=== PATIENT | female | born 1955 | race Two or more races ===

== ENCOUNTER → 2017-03-07 | Outpatient (CLI) | payer BC ==
[2017-03-07 07:39] LABS: Basophils # (auto) 0 uL; Basophils % (auto) 0.2 % (0.0-2.0); CONDITION Y; Eosinophils # (auto) 0.2 uL; Eosinophils % (auto) 1.6 % (0.0-7.0); Hematocrit 43.8 % (36.0-46.0); Hemoglobin 14.9 g/dL (12.2-16.2); Lymphocytes # (auto) 2.9 uL; Lymphocytes % (auto) 28.7 % (10.0-50.0); Mean Corpuscular Hemoglobin 29.1 pg (28.0-32.0); Mean Corpuscular Volume 85.7 fL (80.0-100.0); Mean Platelet Volume 7.3 fL (7.4-10.4); Monocytes # (auto) 0.5 uL; Monocytes % (auto) 4.8 % (0.0-12.0); Neutrophils # (auto) 6.6 uL; Neutrophils % (auto) 64.7 % (37.0-80.0); Platelet Count (auto) 324 10^3/uL (140-450); Red Cell Distribution Width 13.6 % (11.6-16.0); White Blood Cell 10.2 10^3/uL (4.4-10.8)
[2017-03-07 08:17] LABS: Albumin 3.8 g/dL (3.4-5.0); Bilirubin, Total 0.6 mg/dL (0.2-1.0); Calcium 9.6 mg/dL (8.5-10.1); Potassium 4.2 mmol/L (3.5-5.1); Total Protein 8.9 g/dL (6.4-8.2)
[2017-03-07 08:48] LABS: Urine Bilirubin Negative (Negative); Urine Blood Negative /uL (Negative); Urine Color Yellow (Yellow); Urine Glucose TRACE mg/dL (Normal); Urine Ketone Negative (Negative); Urine Nitrite Negative (Negative); Urine RBC <1 /hpf (0 - 4); Urine Squamous Epithelial Cell FEW /hpf (<5); Urine Urobilinogen Normal (Negative); Urine pH 5.5 (5.0-8.0)
== END | disposition home or self-care (01) ==
LOC: LAB 06:59
PROVIDERS: ATTEND Internal Medicine
DX: I10 Essential (primary) hypertension (principal); E11.9 Type 2 diabetes mellitus without complications
CPT/HCPCS: 36415; 80053; 80061; 81001; 83036; 84443; 85025

== ENCOUNTER → 2017-11-14 | Outpatient (CLI) | payer BC ==
[2017-11-14 08:08] LABS: Albumin 3.5 g/dL (3.4-5.0); BUN/Creatinine Ratio 13.9; Calcium 9.5 mg/dL (8.5-10.1); Potassium 4.1 mmol/L (3.5-5.1)
[2017-11-14 08:11] LABS: Bilirubin, Total 0.6 mg/dL (0.2-1.0)
[2017-11-14 08:58] LABS: Free T3 2.81 pg/mL (2.3-4.2)
== END | disposition home or self-care (01) ==
LOC: LAB 07:11
PROVIDERS: ATTEND Physician Assistant
DX: I12.9 Hypertensive chronic kidney disease with stage 1 through stage 4 chronic kidney disease, or unspecified chronic kidney disease (principal); E11.22 Type 2 diabetes mellitus with diabetic chronic kidney disease; N18.3 Chronic kidney disease, stage 3 (moderate); E03.9 Hypothyroidism, unspecified
CPT/HCPCS: 36415; 80053; 83036; 84439; 84443; 84481

== ENCOUNTER 2019-10-28 07:30 | Inpatient (IN) | payer OTHER, BC, SELFPAY ==
[~2019-10-28] VITALS: Ht 162.6 cm; Wt 77.4 kg
[2019-10-28 08:13] LABS: Basophils # (auto) 0 10 ^3/uL (0-0.2); Basophils % (auto) 0.4 % (0.0-2.0); Eosinophils # (auto) 0 10 ^3/uL (0-0.8); Hematocrit 39.2 % (36.0-46.0); Hemoglobin 13.4 g/dL (12.2-16.2); Lymphocytes # (auto) 1.2 10 ^3/uL (0.4-5.4); Lymphocytes % (auto) 20.3 % (10.0-50.0); Mean Corpuscular Hemoglobin 28.3 pg (28.0-32.0); Mean Corpuscular Hgb Conc. 34.3 g/dL (32.0-36.0); Mean Corpuscular Volume 82.4 fL (80.0-100.0); Monocytes # (auto) 0.2 10 ^3/uL (0-1.3); Monocytes % (auto) 3.8 % (0.0-12.0); Neutrophils # (auto) 4.6 10 ^3/uL (1.6-8.6); Neutrophils % (auto) 75.5 % (37.0-80.0); Nucleated Red Blood Cells % 0.2 %; Platelet Count (auto) 244 10^3/uL (140-450); Red Blood Cells 4.75 10^6/uL (4.0-5.20); Red Cell Distribution Width 13.3 % (11.8-14.3); White Blood Cell 6.1 10^3/uL (4.4-10.8)
[2019-10-28 08:35] LABS: Albumin 3.1 g/dL (3.4-5.0); Anion Gap 7 (5-15); Blood Urea Nitrogen 11 mg/dL (7-18); Calcium 8.2 mg/dL (8.5-10.1); Carbon Dioxide 24 mmol/L (21-32); Chloride 101 mmol/L (98-107); Glucose 152 mg/dL (74-106); Magnesium 2.2 mg/dL (1.6-2.6); Potassium 4.1 mmol/L (3.5-5.1); Sodium 132 mmol/L (136-145)
[2019-10-28 08:40] LABS: Alanine Aminotransferase 31 U/L (13-56); Alkaline Phosphatase 62 U/L (45-117); Aspartate Aminotransferase 26 U/L (15-37); BUN/Creatinine Ratio 15.7; Bilirubin, Total 0.4 mg/dL (0.2-1.0); GFR African American 108 mL/min; GFR Non-African American 89 mL/min; Total Protein 8.7 g/dL (6.4-8.2)
[2019-10-28 09:28] LABS: Urine Bacteria NONE SEEN /hpf (None Seen); Urine Blood Negative /uL (Negative); Urine Hyaline Cast FEW /lpf (0 - 2); Urine Mucus FEW (None Seen); Urine Specific Gravity 1.021 (1.001-1.035); Urine WBC 45 /hpf (0 - 5)
[2019-10-28] MEDS ORDERED: cefTRIAXone 1GM/50ML D5W 50 ML IV ONE (10:15)
[2019-10-28] MEDS ORDERED: SPIRONOLACTONE 25 MG TAB PO ONE (10:45)
[2019-10-28] MEDS ORDERED: FUROSEMIDE 40 MG/4 ML VIAL IV ONE (10:45)
[2019-10-28] MEDS ORDERED: FUROSEMIDE INJECTION 10 ML ONE (12:19)
[2019-10-28] MEDS ORDERED: IOHEXOL 350 MG/ML 100ML IJ ONE (14:58)
[2019-10-28] MEDS ORDERED: AZITHROMYCIN 500MG/ 250ML 250 ML IV ONE (15:45)
[2019-10-28] MEDS ORDERED: NITROGLYCERIN 0.4 MG SL TAB SL PRN (17:00)
[2019-10-28] MEDS ORDERED: DEXTROSE (50%) 50ML SYRG IV PRN (17:00)
[2019-10-28] MEDS ORDERED: MORPHINE SULF INJ 2 MG/ML SYRINGE 1ML IV PRN (17:00)
[2019-10-28] MEDS ORDERED: CHOLECALCIFEROL (VITD3) 1,000IU=25mCg TAB PO SCH (17:15)
[2019-10-28 17:38] LABS: CRP High Sensitivity 3.72 mg/dL (< 0.3)
[2019-10-28] MEDS: InsuLIN REG 1unit/0.01ml Soln (100units/ml) SC SCH ×2 (17:52→21:48)
[2019-10-28] MEDS: ACCU-CHEK COMFORT CURVE STRIP VI SCH ×2 (17:54→21:49)
[2019-10-28 20:00] VITALS: BP 112/54
[2019-10-28] MEDS ORDERED: METF-370 PO (21:52)
[2019-10-28] MEDS ORDERED: ASCORBIC ACID 500 MG TAB PO SCH (22:00)
[2019-10-29] MEDS: ACCU-CHEK COMFORT CURVE STRIP VI SCH ×4 (07:00→23:55)
[2019-10-29] MEDS: InsuLIN REG 1unit/0.01ml Soln (100units/ml) SC SCH ×4 (07:00→22:00)
[2019-10-29 08:21] LABS: Basophils # (auto) 0 10 ^3/uL (0-0.2); Basophils % (auto) 0.2 % (0.0-2.0); Eosinophils # (auto) 0 10 ^3/uL (0-0.8); Hematocrit 38.3 % (36.0-46.0); Hemoglobin 12.8 g/dL (12.2-16.2); Lymphocytes # (auto) 1.1 10 ^3/uL (0.4-5.4); Lymphocytes % (auto) 15.3 % (10.0-50.0); Mean Corpuscular Hemoglobin 27.6 pg (28.0-32.0); Mean Corpuscular Hgb Conc. 33.5 g/dL (32.0-36.0); Mean Corpuscular Volume 82.1 fL (80.0-100.0); Monocytes # (auto) 0.3 10 ^3/uL (0-1.3); Monocytes % (auto) 4.5 % (0.0-12.0); Neutrophils # (auto) 5.7 10 ^3/uL (1.6-8.6); Nucleated Red Blood Cells % 0.1 %; Platelet Count (auto) 240 10^3/uL (140-450); Red Blood Cells 4.66 10^6/uL (4.0-5.20); Red Cell Distribution Width 13.3 % (11.8-14.3); White Blood Cell 7.1 10^3/uL (4.4-10.8)
[2019-10-29 08:40] LABS: Albumin 2.8 g/dL (3.4-5.0); Calcium 8.5 mg/dL (8.5-10.1); Potassium 3.7 mmol/L (3.5-5.1)
[2019-10-29 08:43] LABS: BUN/Creatinine Ratio 16.7; Bilirubin, Total 0.6 mg/dL (0.2-1.0); Total Protein 8.2 g/dL (6.4-8.2)
[2019-10-29 09:00] VITALS: BP 115/58
[2019-10-29] MEDS ORDERED: cefTRIAXone 1GM/50ML D5W 50 ML IV SCH (09:00)
[2019-10-29] MEDS ORDERED: AZITHROMYCIN 500MG/ 250ML 250 ML IV SCH (10:00)
[2019-10-29] MEDS ORDERED: ENOXAPARIN SOD 40 MG/0.4 ML SYRINGE SC SCH (10:00)
[2019-10-29] MEDS ORDERED: ZINC SULFATE 220mg CAP or TAB PO SCH (10:00)
[2019-10-29 13:00] VITALS: BP 130/71
[2019-10-29] MEDS: AZITHROMYCIN 500MG/ 250ML 250 ML IV SCH (13:35)
[2019-10-29] MEDS: ZINC SULFATE 220mg CAP or TAB PO SCH (13:35)
[2019-10-29] MEDS: ENOXAPARIN SOD 40 MG/0.4 ML SYRINGE SC SCH (13:36)
[2019-10-29] MEDS: CHOLECALCIFEROL (VITD3) 1,000IU=25mCg TAB PO SCH (13:36)
[2019-10-29] MEDS: ASCORBIC ACID 500 MG TAB PO SCH ×2 (13:36→23:56)
[2019-10-29 17:30] VITALS: BP 116/82
[2019-10-29] MEDS ORDERED: ACETAMINOPHEN 500 MG TAB PO PRN (19:00)
[2019-10-29 22:00] VITALS: BP 115/65
[2019-10-29] MEDS: ALBUTEROL SULF HFA 90MCG INH 200DOSE IN SCH (22:00)
[2019-10-30] MEDS: ACCU-CHEK COMFORT CURVE STRIP VI SCH ×4 (06:53→22:45)
[2019-10-30] MEDS: InsuLIN REG 1unit/0.01ml Soln (100units/ml) SC SCH ×4 (06:56→23:45)
[2019-10-30] MEDS: ALBUTEROL SULF HFA 90MCG INH 200DOSE IN SCH ×3 (07:23→23:45)
[2019-10-30 09:00] VITALS: BP 109/62
[2019-10-30] MEDS: cefTRIAXone 1GM/50ML D5W 50 ML IV SCH (09:18)
[2019-10-30 09:36] VITALS: BP 115/65
[2019-10-30] MEDS ORDERED: cefTRIAXone 1GM/50ML D5W 50 ML IV SCH (12:00)
[2019-10-30 13:00] VITALS: BP 127/71
[2019-10-30] MEDS: AZITHROMYCIN 500MG/ 250ML 250 ML IV SCH (13:44)
[2019-10-30] MEDS: ZINC SULFATE 220mg CAP or TAB PO SCH (13:44)
[2019-10-30] MEDS: ASCORBIC ACID 500 MG TAB PO SCH ×2 (13:44→23:45)
[2019-10-30] MEDS: CHOLECALCIFEROL (VITD3) 1,000IU=25mCg TAB PO SCH (13:45)
[2019-10-30] MEDS: ENOXAPARIN SOD 40 MG/0.4 ML SYRINGE SC SCH (13:45)
[2019-10-30 14:10] LABS: Basophils # (auto) 0 10 ^3/uL (0-0.2); Basophils % (auto) 0.1 % (0.0-2.0); Eosinophils # (auto) 0 10 ^3/uL (0-0.8); Eosinophils % (auto) 0.1 % (0.0-7.0); Hematocrit 37.4 % (36.0-46.0); Hemoglobin 12.8 g/dL (12.2-16.2); Lymphocytes # (auto) 1.2 10 ^3/uL (0.4-5.4); Lymphocytes % (auto) 17.5 % (10.0-50.0); Mean Corpuscular Hemoglobin 28.1 pg (28.0-32.0); Mean Corpuscular Hgb Conc. 34.3 g/dL (32.0-36.0); Mean Corpuscular Volume 81.8 fL (80.0-100.0); Monocytes # (auto) 0.3 10 ^3/uL (0-1.3); Monocytes % (auto) 4.9 % (0.0-12.0); Neutrophils # (auto) 5.5 10 ^3/uL (1.6-8.6); Neutrophils % (auto) 77.4 % (37.0-80.0); Platelet Count (auto) 270 10^3/uL (140-450); Red Blood Cells 4.57 10^6/uL (4.0-5.20); Red Cell Distribution Width 13.2 % (11.8-14.3)
[2019-10-30 14:30] LABS: Albumin 2.7 g/dL (3.4-5.0); BUN/Creatinine Ratio 11.6; Calcium 8.8 mg/dL (8.5-10.1)
[2019-10-30 14:33] LABS: Bilirubin, Total 0.4 mg/dL (0.2-1.0); Total Protein 8.5 g/dL (6.4-8.2)
[2019-10-30 17:30] VITALS: BP 119/73
[2019-10-30 21:30] VITALS: BP 104/59
[2019-10-31 05:00] VITALS: BP 115/64
[2019-10-31] MEDS: ALBUTEROL SULF HFA 90MCG INH 200DOSE IN SCH ×3 (07:05→22:56)
[2019-10-31] MEDS: ACCU-CHEK COMFORT CURVE STRIP VI SCH ×4 (07:10→22:56)
[2019-10-31] MEDS: InsuLIN REG 1unit/0.01ml Soln (100units/ml) SC SCH ×4 (07:10→23:30)
[2019-10-31 08:00] VITALS: BP 105/76
[2019-10-31 09:05] LABS: Basophils # (auto) 0 10 ^3/uL (0-0.2); Basophils % (auto) 0.2 % (0.0-2.0); Eosinophils # (auto) 0 10 ^3/uL (0-0.8); Eosinophils % (auto) 0.3 % (0.0-7.0); Hemoglobin 12.9 g/dL (12.2-16.2); Lymphocytes # (auto) 1.1 10 ^3/uL (0.4-5.4); Lymphocytes % (auto) 18.3 % (10.0-50.0); Mean Corpuscular Hemoglobin 27.9 pg (28.0-32.0); Mean Corpuscular Volume 82.1 fL (80.0-100.0); Monocytes # (auto) 0.4 10 ^3/uL (0-1.3); Monocytes % (auto) 6.5 % (0.0-12.0); Neutrophils # (auto) 4.5 10 ^3/uL (1.6-8.6); Neutrophils % (auto) 74.7 % (37.0-80.0); Nucleated Red Blood Cells % 0.1 %; Platelet Count (auto) 287 10^3/uL (140-450); Red Blood Cells 4.62 10^6/uL (4.0-5.20); Red Cell Distribution Width 13.1 % (11.8-14.3)
[2019-10-31 09:19] LABS: Albumin 2.7 g/dL (3.4-5.0); Potassium 3.9 mmol/L (3.5-5.1)
[2019-10-31 09:22] LABS: BUN/Creatinine Ratio 12.3; Bilirubin, Total 0.5 mg/dL (0.2-1.0); Total Protein 8.7 g/dL (6.4-8.2)
[2019-10-31] MEDS: cefTRIAXone 1GM/50ML D5W 50 ML IV SCH (10:05)
[2019-10-31 12:00] VITALS: BP 103/54
[2019-10-31] MEDS: ZINC SULFATE 220mg CAP or TAB PO SCH (12:44)
[2019-10-31] MEDS: CHOLECALCIFEROL (VITD3) 1,000IU=25mCg TAB PO SCH (12:45)
[2019-10-31] MEDS: ASCORBIC ACID 500 MG TAB PO SCH ×2 (12:45→22:56)
[2019-10-31] MEDS: AZITHROMYCIN 250 MG TAB PO SCH (12:46)
[2019-10-31] MEDS: ENOXAPARIN SOD 40 MG/0.4 ML SYRINGE SC SCH (12:47)
[2019-10-31 21:00] VITALS: BP 135/99
[2019-11-01 05:00] VITALS: BP 117/59
[2019-11-01] MEDS: ALBUTEROL SULF HFA 90MCG INH 200DOSE IN SCH ×3 (06:17→23:02)
[2019-11-01] MEDS: ACCU-CHEK COMFORT CURVE STRIP VI SCH ×4 (06:17→23:32)
[2019-11-01] MEDS: InsuLIN REG 1unit/0.01ml Soln (100units/ml) SC SCH ×4 (06:30→23:02)
[2019-11-01 08:10] VITALS: BP 147/86
[2019-11-01] MEDS: cefTRIAXone 1GM/50ML D5W 50 ML IV SCH (09:26)
[2019-11-01] MEDS: ASCORBIC ACID 500 MG TAB PO SCH ×2 (12:59→23:33)
[2019-11-01] MEDS: ZINC SULFATE 220mg CAP or TAB PO SCH (12:59)
[2019-11-01] MEDS: CHOLECALCIFEROL (VITD3) 1,000IU=25mCg TAB PO SCH (13:00)
[2019-11-01] MEDS: AZITHROMYCIN 250 MG TAB PO SCH (13:00)
[2019-11-01 13:01] LABS: Albumin 2.6 g/dL (3.4-5.0); Calcium 9.2 mg/dL (8.5-10.1); Magnesium 2.4 mg/dL (1.6-2.6)
[2019-11-01 13:04] LABS: BUN/Creatinine Ratio 11.8; Bilirubin, Total 0.3 mg/dL (0.2-1.0); Phosphorus 3.8 mg/dL (2.5-4.90); Total Protein 8.3 g/dL (6.4-8.2)
[2019-11-01 16:09] LABS: Basophils # (auto) 0 10 ^3/uL (0-0.2); Basophils % (auto) 0.5 % (0.0-2.0); Eosinophils # (auto) 0.1 10 ^3/uL (0-0.8); Eosinophils % (auto) 1.4 % (0.0-7.0); Hematocrit 36.1 % (36.0-46.0); Hemoglobin 12.1 g/dL (12.2-16.2); Lymphocytes # (auto) 1.4 10 ^3/uL (0.4-5.4); Lymphocytes % (auto) 23.3 % (10.0-50.0); Mean Corpuscular Hemoglobin 28.1 pg (28.0-32.0); Mean Corpuscular Hgb Conc. 33.5 g/dL (32.0-36.0); Mean Corpuscular Volume 83.8 fL (80.0-100.0); Monocytes # (auto) 0.4 10 ^3/uL (0-1.3); Monocytes % (auto) 7.3 % (0.0-12.0); Neutrophils % (auto) 67.5 % (37.0-80.0); Nucleated Red Blood Cells % 0.3 %; Platelet Count (auto) 240 10^3/uL (140-450); Red Blood Cells 4.31 10^6/uL (4.0-5.20); Red Cell Distribution Width 13.1 % (11.8-14.3); White Blood Cell 5.9 10^3/uL (4.4-10.8)
[2019-11-01] MEDS: ENOXAPARIN SOD 40 MG/0.4 ML SYRINGE SC SCH (16:14)
[2019-11-01 21:00] VITALS: BP 123/62
[2019-11-02] MEDS: ALBUTEROL SULF HFA 90MCG INH 200DOSE IN SCH ×3 (07:00→22:08)
[2019-11-02] MEDS: ACCU-CHEK COMFORT CURVE STRIP VI SCH ×3 (07:25→18:45)
[2019-11-02] MEDS: InsuLIN REG 1unit/0.01ml Soln (100units/ml) SC SCH ×3 (07:25→19:08)
[2019-11-02 07:51] LABS: Basophils # (auto) 0 10 ^3/uL (0-0.2); Basophils % (auto) 0.4 % (0.0-2.0); Eosinophils # (auto) 0.1 10 ^3/uL (0-0.8); Eosinophils % (auto) 1.9 % (0.0-7.0); Hematocrit 39.4 % (36.0-46.0); Hemoglobin 13.3 g/dL (12.2-16.2); Lymphocytes % (auto) 29.8 % (10.0-50.0); Mean Corpuscular Hemoglobin 27.7 pg (28.0-32.0); Mean Corpuscular Hgb Conc. 33.7 g/dL (32.0-36.0); Mean Corpuscular Volume 82.3 fL (80.0-100.0); Monocytes # (auto) 0.5 10 ^3/uL (0-1.3); Monocytes % (auto) 7.7 % (0.0-12.0); Neutrophils % (auto) 60.2 % (37.0-80.0); Platelet Count (auto) 397 10^3/uL (140-450); Red Blood Cells 4.79 10^6/uL (4.0-5.20); Red Cell Distribution Width 13.1 % (11.8-14.3); White Blood Cell 6.6 10^3/uL (4.4-10.8)
[2019-11-02 08:06] LABS: INR 1.02 (0.9-1.15); Partial Thromboplastin Time 24.3 sec (23.64-32.05)
[2019-11-02 08:17] LABS: Calcium 9.5 mg/dL (8.5-10.1); Magnesium 2.4 mg/dL (1.6-2.6); Potassium 3.9 mmol/L (3.5-5.1)
[2019-11-02 08:21] LABS: BUN/Creatinine Ratio 8.6; Bilirubin, Total 0.4 mg/dL (0.2-1.0); Phosphorus 3.9 mg/dL (2.5-4.90); Total Protein 9.4 g/dL (6.4-8.2)
[2019-11-02] MEDS: cefTRIAXone 1GM/50ML D5W 50 ML IV SCH (10:22)
[2019-11-02 11:58] VITALS: BP 123/62
[2019-11-02 12:00] VITALS: BP 123/64
[2019-11-02] MEDS: ASCORBIC ACID 500 MG TAB PO SCH (13:11)
[2019-11-02] MEDS: CHOLECALCIFEROL (VITD3) 1,000IU=25mCg TAB PO SCH (13:11)
[2019-11-02] MEDS: ZINC SULFATE 220mg CAP or TAB PO SCH (13:11)
[2019-11-02] MEDS: AZITHROMYCIN 250 MG TAB PO SCH (13:11)
[2019-11-02] MEDS: ENOXAPARIN SOD 40 MG/0.4 ML SYRINGE SC SCH (13:12)
[2019-11-02 16:00] VITALS: BP 121/65
[2019-11-02 22:00] VITALS: BP 115/60
[2019-11-03] MEDS: ACCU-CHEK COMFORT CURVE STRIP VI SCH ×5 (00:03→21:57)
[2019-11-03] MEDS: ASCORBIC ACID 500 MG TAB PO SCH ×3 (00:03→21:57)
[2019-11-03] MEDS: InsuLIN REG 1unit/0.01ml Soln (100units/ml) SC SCH ×5 (00:03→21:55)
[2019-11-03 05:00] VITALS: BP 124/61
[2019-11-03] MEDS: ALBUTEROL SULF HFA 90MCG INH 200DOSE IN SCH ×3 (06:24→21:55)
[2019-11-03] MEDS: cefTRIAXone 1GM/50ML D5W 50 ML IV SCH ×2 (08:05→08:30)
[2019-11-03 08:45] VITALS: BP 122/67
[2019-11-03] MEDS: ZINC SULFATE 220mg CAP or TAB PO SCH (11:29)
[2019-11-03] MEDS: ENOXAPARIN SOD 40 MG/0.4 ML SYRINGE SC SCH (11:30)
[2019-11-03] MEDS: CHOLECALCIFEROL (VITD3) 1,000IU=25mCg TAB PO SCH (11:30)
[2019-11-03] MEDS: AZITHROMYCIN 250 MG TAB PO SCH (11:30)
[2019-11-03 13:00] VITALS: BP 126/69
[2019-11-03 16:12] VITALS: BP 119/67
[2019-11-03 22:00] VITALS: BP 121/68
[2019-11-04 05:00] VITALS: BP 96/51
[2019-11-04] MEDS: ALBUTEROL SULF HFA 90MCG INH 200DOSE IN SCH ×2 (05:53→14:19)
[2019-11-04] MEDS: ACCU-CHEK COMFORT CURVE STRIP VI SCH ×3 (05:53→17:00)
[2019-11-04] MEDS: InsuLIN REG 1unit/0.01ml Soln (100units/ml) SC SCH ×3 (05:53→17:00)
[2019-11-04 08:00] VITALS: BP 102/62
[2019-11-04] MEDS: ZINC SULFATE 220mg CAP or TAB PO SCH (12:00)
[2019-11-04 13:00] VITALS: BP 109/54
[2019-11-04] MEDS: ASCORBIC ACID 500 MG TAB PO SCH (13:53)
[2019-11-04] MEDS: ENOXAPARIN SOD 40 MG/0.4 ML SYRINGE SC SCH (13:54)
[2019-11-04] MEDS: CHOLECALCIFEROL (VITD3) 1,000IU=25mCg TAB PO SCH (13:54)
[2019-11-04] MEDS: AZITHROMYCIN 250 MG TAB PO SCH (13:55)
[2019-11-04 16:17] VITALS: BP 119/61
[2019-11-04 16:26] VITALS: BP 119/61
[2019-11-04 18:00] VITALS: BP 119/61
== END 2019-11-04 18:30 | disposition home or self-care (01) | DRG 871 ==
LOC: ER 07:30 → TELE 07:31 → TELE-EAST 18:48
PROVIDERS: ADMIT Nurse Practitioner Acute Care; ATTEND Internal Medicine Nephrology
DX: A41.89 Other specified sepsis (principal); U07.1 COVID-19; J96.01 Acute respiratory failure with hypoxia; J12.89 Other viral pneumonia; N30.00 Acute cystitis without hematuria; E87.1 Hypo-osmolality and hyponatremia; R65.20 Severe sepsis without septic shock; E66.9 Obesity, unspecified; E88.09 Other disorders of plasma-protein metabolism, not elsewhere classified; K80.20 Calculus of gallbladder without cholecystitis without obstruction; E11.65 Type 2 diabetes mellitus with hyperglycemia; Z79.84 Long term (current) use of oral hypoglycemic drugs; Z83.3 Family history of diabetes mellitus; Z80.8 Family history of malignant neoplasm of other organs or systems; Z80.0 Family history of malignant neoplasm of digestive organs; Z68.29 Body mass index [BMI] 29.0-29.9, adult; B97.29 Other coronavirus as the cause of diseases classified elsewhere
CPT/HCPCS: 36415; 71045; 71275; 80053; 81001; 82728; 82962; 83036; 83615; 83735; 83880; 83930; 84100; 84484; 84550; 85025; 85379; 85610; 85652; 85730; 86141; 87040; 87070; 87804; 87880; 93005; 94640; 96365; 96367; 96375; G0378; J0696; J1815

== ENCOUNTER 2019-11-30 07:33 | Inpatient (IN) | payer OTHER, BC ==
[~2019-11-30] VITALS: Ht 160 cm; Wt 74.9 kg
[~2019-11-30 07:33] MED LIST: METF-370 PO
[2019-11-30] MEDS ORDERED: SODIUM CHLORIDE 0.9% 1,000 ML IV ONE (07:43)
[2019-11-30] MEDS ORDERED: ASPirin 81 mg TAB PO ONE (08:00)
[2019-11-30 08:31] LABS: Basophils # (auto) 0 10 ^3/uL (0-0.2); Basophils % (auto) 0.3 % (0.0-2.0); Eosinophils # (auto) 0.1 10 ^3/uL (0-0.8); Hematocrit 37.2 % (36.0-46.0); Hemoglobin 12.2 g/dL (12.2-16.2); Lymphocytes # (auto) 2.5 10 ^3/uL (0.4-5.4); Lymphocytes % (auto) 36.5 % (10.0-50.0); Mean Corpuscular Hemoglobin 27.6 pg (28.0-32.0); Mean Corpuscular Hgb Conc. 32.8 g/dL (32.0-36.0); Mean Corpuscular Volume 84.2 fL (80.0-100.0); Monocytes # (auto) 0.4 10 ^3/uL (0-1.3); Monocytes % (auto) 5.2 % (0.0-12.0); Neutrophils # (auto) 3.9 10 ^3/uL (1.6-8.6); Nucleated Red Blood Cells % 0.1 %; Platelet Count (auto) 250 10^3/uL (140-450); Red Blood Cells 4.42 10^6/uL (4.0-5.20); Red Cell Distribution Width 14.9 % (11.8-14.3); White Blood Cell 6.9 10^3/uL (4.4-10.8)
[2019-11-30 08:50] LABS: Alanine Aminotransferase 26 U/L (13-56); Albumin 3.4 g/dL (3.4-5.0); Anion Gap 6 (5-15); Aspartate Aminotransferase 16 U/L (15-37); Blood Urea Nitrogen 9 mg/dL (7-18); Calcium 8.8 mg/dL (8.5-10.1); Carbon Dioxide 27 mmol/L (21-32); Chloride 106 mmol/L (98-107); Glucose 178 mg/dL (74-106); Potassium 3.6 mmol/L (3.5-5.1); Sodium 139 mmol/L (136-145)
[2019-11-30 08:55] LABS: Alkaline Phosphatase 54 U/L (45-117); BUN/Creatinine Ratio 13.8; Bilirubin, Total 0.4 mg/dL (0.2-1.0); GFR African American 117 mL/min; GFR Non-African American 97 mL/min; Lactate Dehydrogenase 132 U/L (84-246); Total Protein 7.9 g/dL (6.4-8.2)
[2019-11-30] MEDS ORDERED: hydrALAZINE HCL 20 MG/ML VL IV PRN (10:00)
[2019-11-30] MEDS ORDERED: LISINOPRIL 10 MG TAB PO SCH (10:00)
[2019-11-30] MEDS ORDERED: ONDANSETRON HCL 4 MG/2 ML VIAL IV PRN (10:00)
[2019-11-30] MEDS ORDERED: MORPHINE SULF INJ 2 MG/ML SYRINGE 1ML IV PRN ×2 (10:00)
[2019-11-30] MEDS ORDERED: NITROGLYCERIN 0.4 MG SL TAB SL PRN (10:00)
[2019-11-30] MEDS ORDERED: DEXTROSE (50%) 50ML SYRG IV PRN (10:00)
[2019-11-30] MEDS ORDERED: HYDROcodone-ACET 5/325MG TAB PO PRN (10:00)
[2019-11-30] MEDS ORDERED: ACETAMINOPHEN 500 MG TAB PO PRN ×2 (10:00→13:30)
[2019-11-30] MEDS: METOPROLOL TARTRATE 25 MG TAB PO SCH ×2 (10:16→22:00)
[2019-11-30] MEDS: ENOXAPARIN SOD 40 MG/0.4 ML SYRINGE SC SCH (10:17)
[2019-11-30] MEDS: FAMOTIDINE 20 MG TAB PO SCH (10:17)
[2019-11-30 10:25] LABS: CRP High Sensitivity 0.06 mg/dL (< 0.3); Magnesium 2.2 mg/dL (1.6-2.6)
[2019-11-30] MEDS ORDERED: FUROSEMIDE 20 MG/2 ML VIAL IV ONE (10:30)
--- NOTE | 2019-11-30 11:06 | NUR ---
Telemetry admit from ER ORQUIDEA COOPER admitted to Telemetry unit after SBAR received. Patient oriented to Subha Lopez, primary RN, unit, room, bed, and unit policies regarding patient care and visiting hours. Patient now on continuous telemetry monitoring, tele box # 3 and telemetry reading on arrival to unit is . Patient placed on bedside oxygen, weighed by bedscale and encouraged to call if they need something. All questions and concerns addressed, patient verbalized understanding. Note:
[2019-11-30 11:38] VITALS: BP 129/73
--- NOTE | 2019-11-30 12:06 | NUR ---
ATTEMPTED LAB DRAW UNABLE TO GET AFTER 2 TRIES. NOTIFIED LAB
[2019-11-30 13:00] VITALS: BP 134/67
[2019-11-30] MEDS: ACCU-CHEK COMFORT CURVE STRIP VI SCH ×3 (13:04→22:18)
[2019-11-30] MEDS: InsuLIN REG 1unit/0.01ml Soln (100units/ml) SC SCH ×3 (13:05→22:19)
--- NOTE | 2019-11-30 13:54 | NUR ---
CAMPBELL CAMPUZANO AT BEDSIDE DISCUSSING POC WITH PATIENT WA ABLE TO DRAW LAB FOR TROPONIN.
[2019-11-30] MEDS: ALBUTEROL SULF HFA 90MCG INH 200DOSE IN SCH ×2 (14:20→22:17)
--- NOTE | 2019-11-30 14:20 | NUR ---
Respiratory note: SCHEDULED MED NEB TX GIVEN. HR 65, RR16, SPO2 92% ON ROOM AIR. BS ARE CLEAR AND DIMINISHED.
[2019-11-30 14:50] VITALS: BP 134/67
[2019-11-30 15:00] VITALS: BP 115/62
--- NOTE | 2019-11-30 15:00 | NUR ---
LABS DRAWN FOR TROPONIN
--- NOTE | 2019-11-30 19:10 | NUR ---
Opening Shift Note Assumed care of patient, awake, alert and oriented x4, on room air with even and unlabored respirations, no S/S of distress/SOB or pain. Patient able to ambulate and turn independently, bed in lowest locked position, side rails up x2, and call light within reach. Instructed on POC and to call for assist PRN, will continue to monitor for changes Q1hr and PRN.
--- NOTE | 2019-11-30 22:17 | NUR ---
Respiratory note: ALBUTEROL GIVEN VIA MDI BY RN. WILL CONTINUE TO MONITOR.
[2019-11-30] MEDS: DOXYCYCLINE 100 MG TAB/CAP PO SCH (22:18)
[2019-11-30] MEDS: ATORVASTATIN 20 MG TAB PO SCH (22:18)
[2019-12-01] MEDS: ALBUTEROL SULF HFA 90MCG INH 200DOSE IN SCH ×3 (06:22→21:34)
[2019-12-01] MEDS: InsuLIN REG 1unit/0.01ml Soln (100units/ml) SC SCH ×4 (06:35→21:38)
[2019-12-01] MEDS: ACCU-CHEK COMFORT CURVE STRIP VI SCH ×4 (06:35→21:34)
[2019-12-01 06:41] LABS: Basophils # (auto) 0 10 ^3/uL (0-0.2); Basophils % (auto) 0.4 % (0.0-2.0); Eosinophils # (auto) 0.2 10 ^3/uL (0-0.8); Eosinophils % (auto) 3.3 % (0.0-7.0); Hematocrit 37.2 % (36.0-46.0); Hemoglobin 12.2 g/dL (12.2-16.2); Lymphocytes # (auto) 2.4 10 ^3/uL (0.4-5.4); Lymphocytes % (auto) 34.7 % (10.0-50.0); Mean Corpuscular Hemoglobin 27.8 pg (28.0-32.0); Mean Corpuscular Hgb Conc. 32.8 g/dL (32.0-36.0); Mean Corpuscular Volume 84.7 fL (80.0-100.0); Monocytes # (auto) 0.4 10 ^3/uL (0-1.3); Monocytes % (auto) 5.1 % (0.0-12.0); Neutrophils % (auto) 56.5 % (37.0-80.0); Nucleated Red Blood Cells % 0.1 %; Platelet Count (auto) 249 10^3/uL (140-450)
--- NOTE | 2019-12-01 07:00 | NUR ---
Opening Shift Note Assumed care of patient, awake and alert. No S/S of distress/SOB or pain. Instructed on POC and to call for assist PRN, will continue to monitor for changes Q1hr and PRN.
[2019-12-01 07:02] LABS: Alanine Aminotransferase 30 U/L (13-56); Albumin 3.2 g/dL (3.4-5.0); Anion Gap 5 (5-15); Aspartate Aminotransferase 20 U/L (15-37); Blood Urea Nitrogen 9 mg/dL (7-18); Calcium 8.8 mg/dL (8.5-10.1); Carbon Dioxide 25 mmol/L (21-32); Chloride 107 mmol/L (98-107); GFR African American 129 mL/min; GFR Non-African American 106 mL/min; Glucose 162 mg/dL (74-106); Potassium 3.8 mmol/L (3.5-5.1); Sodium 137 mmol/L (136-145)
[2019-12-01 07:06] LABS: Alkaline Phosphatase 45 U/L (45-117); Bilirubin, Total 0.6 mg/dL (0.2-1.0); Total Protein 7.7 g/dL (6.4-8.2)
--- NOTE | 2019-12-01 07:29 | NUR ---
Respiratory note: HR 68, RR 14, SPO2 99% ON 1 L NC, BS CLEAR. MDI GIVEN EARLIER BY RN. NO SIGNS OR SYMPTOMS OF RESPIRATORY DISTRESS NOTED AT THIS TIME
[2019-12-01 09:00] VITALS: BP 124/64
[2019-12-01] MEDS: ASPirin-EC 81 mg tab PO SCH (10:27)
[2019-12-01] MEDS: METOPROLOL TARTRATE 25 MG TAB PO SCH ×2 (10:27→21:42)
[2019-12-01] MEDS: FAMOTIDINE 20 MG TAB PO SCH (10:28)
[2019-12-01] MEDS: ZINC SULFATE 220mg CAP or TAB PO SCH (10:28)
[2019-12-01] MEDS: ASCORBIC ACID 1,000 MG TAB PO SCH (10:29)
[2019-12-01] MEDS: DOXYCYCLINE 100 MG TAB/CAP PO SCH ×2 (10:29→21:34)
[2019-12-01] MEDS: CHOLECALCIFEROL (VITD3) 1,000IU=25mCg TAB PO SCH (10:29)
[2019-12-01] MEDS: ENOXAPARIN SOD 40 MG/0.4 ML SYRINGE SC SCH (10:30)
[2019-12-01 13:00] VITALS: BP 111/63
--- NOTE | 2019-12-01 14:00 | NUR ---
DR. CALIX AT BEDSIDE DISCUSSING POC WITH PATIENT.
--- NOTE | 2019-12-01 14:17 | NUR ---
Respiratory note: HR 59, RR 14, SPO2 95% ON RA. MDI DONE BY PT,TOLERATED WELL. NO SIGNS OR SYMPTOMS OF RESPIRATORY DISTRESS NOTED AT THIS TIME.
[2019-12-01] MEDS ORDERED: LORazepam 2MG/ML-1ML VIAL IV PRN (19:45)
[2019-12-01 20:03] LABS: Cholesterol 156 mg/dL (< 200)
[2019-12-01 20:06] LABS: HDL Cholesterol 55 mg/dL (40-59); LDL Cholesterol 79 mg/dL (< 100); Triglycerides 136 mg/dL (< 150)
[2019-12-01] MEDS: ATORVASTATIN 20 MG TAB PO SCH (21:34)
[2019-12-02] MEDS: ACCU-CHEK COMFORT CURVE STRIP VI SCH ×2 (06:57→11:43)
[2019-12-02] MEDS: InsuLIN REG 1unit/0.01ml Soln (100units/ml) SC SCH ×2 (06:58→11:48)
[2019-12-02] MEDS: ALBUTEROL SULF HFA 90MCG INH 200DOSE IN SCH (07:12)
[2019-12-02 09:00] VITALS: BP 117/56
[2019-12-02] MEDS: ZINC SULFATE 220mg CAP or TAB PO SCH (10:57)
[2019-12-02] MEDS: ASPirin-EC 81 mg tab PO SCH (10:57)
[2019-12-02] MEDS: METOPROLOL TARTRATE 25 MG TAB PO SCH (10:58)
[2019-12-02] MEDS: DOXYCYCLINE 100 MG TAB/CAP PO SCH (10:58)
[2019-12-02] MEDS: FAMOTIDINE 20 MG TAB PO SCH (10:59)
[2019-12-02] MEDS: ASCORBIC ACID 1,000 MG TAB PO SCH (10:59)
[2019-12-02] MEDS: CHOLECALCIFEROL (VITD3) 1,000IU=25mCg TAB PO SCH (10:59)
[2019-12-02] MEDS: ENOXAPARIN SOD 40 MG/0.4 ML SYRINGE SC SCH (11:00)
[2019-12-02] MEDS ORDERED: ASP81EC PO (11:38)
[2019-12-02] MEDS ORDERED: ATOR20TA50 PO (11:38)
[2019-12-02 12:11] VITALS: BP 118/65
--- NOTE | 2019-12-02 13:40 | NUR ---
Discharge instructions given as ordered. Encourage to follow up with PMD as instructed. All questions and concerns addressed. Patient verbalized understanding. Medication reconciliation form completed and copy given to patient. IV removed with catheter intact, pressure dressing applied. Telemetry unit returned to ICU. Patient taken to vehicle via wheelchair with all personal belongings, accompanied by staff and family member. No distress noted at time of departure. Patient discharge instructions given patient verbalized understanding. Patient educated on isolation and discharge instructions.
== END 2019-12-02 13:40 | disposition home or self-care (01) | DRG 313 ==
LOC: ER 07:33 → TELE 07:34 → TELE-EAST 10:06
PROVIDERS: ADMIT Nurse Practitioner Acute Care; ATTEND Internal Medicine Nephrology
DX: R07.9 Chest pain, unspecified (principal); J12.89 Other viral pneumonia; U07.1 COVID-19; E11.9 Type 2 diabetes mellitus without complications; E78.5 Hyperlipidemia, unspecified; E66.9 Obesity, unspecified; Z83.3 Family history of diabetes mellitus; Z80.8 Family history of malignant neoplasm of other organs or systems; Z80.0 Family history of malignant neoplasm of digestive organs; Z79.84 Long term (current) use of oral hypoglycemic drugs; Z87.01 Personal history of pneumonia (recurrent)
CPT/HCPCS: 36415; 71045; 80053; 80061; 82728; 82962; 83036; 83615; 83735; 83880; 84443; 84484; 85025; 85379; 86141; 87040; 87070; 87081; 87804; 87880; 93005; 94640; 96360; 96372; G0378; J1815

== ENCOUNTER → 2021-11-27 | Outpatient (CLI) | payer BC ==
[~2021-11-27] MED LIST changes: +ASPI-394 PO; +ATOR20TA50 PO
== END | disposition home or self-care (01) ==
LOC: LAB 07:11
PROVIDERS: ATTEND Internal Medicine
DX: E11.9 Type 2 diabetes mellitus without complications (principal); E03.9 Hypothyroidism, unspecified
CPT/HCPCS: 36415; 82306; 83036; 84439; 84443

== ENCOUNTER → 2022-04-05 | Outpatient (CLI) | payer BC ==
[2022-04-05 07:44] LABS: Basophils # (auto) 0 10 ^3/uL (0-0.2); Basophils % (auto) 0.6 % (0.0-2.0); Eosinophils # (auto) 0.1 10 ^3/uL (0-0.8); Eosinophils % (auto) 2.1 % (0.0-7.0); Hematocrit 39.6 % (36.0-46.0); Hemoglobin 13.2 g/dL (12.2-16.2); Lymphocytes # (auto) 2.5 10 ^3/uL (0.4-5.4); Lymphocytes % (auto) 41.5 % (10.0-50.0); Mean Corpuscular Hemoglobin 28.4 pg (28.0-32.0); Mean Corpuscular Hgb Conc. 33.4 g/dL (32.0-36.0); Mean Corpuscular Volume 85.2 fL (80.0-100.0); Monocytes # (auto) 0.3 10 ^3/uL (0-1.3); Monocytes % (auto) 5.3 % (0.0-12.0); Neutrophils # (auto) 3.1 10 ^3/uL (1.6-8.6); Neutrophils % (auto) 50.5 % (37.0-80.0); Nucleated Red Blood Cells % 0.1 %; Red Blood Cells 4.65 10^6/uL (4.0-5.20); Red Cell Distribution Width 13.4 % (11.8-14.3); White Blood Cell 6.1 10^3/uL (4.4-10.8)
[2022-04-05 07:45] LABS: Urine Bacteria MOD /hpf (None Seen); Urine Blood Negative /uL (Negative); Urine Specific Gravity 1.004 (1.001-1.035); Urine WBC 8 /hpf (0 - 5)
[2022-04-05 08:32] LABS: Albumin 3.7 g/dL (3.4-5.0); Calcium 9.5 mg/dL (8.5-10.1); Potassium 4.3 mmol/L (3.5-5.1)
[2022-04-05 08:38] LABS: BUN/Creatinine Ratio 15.6; Bilirubin, Total 0.5 mg/dL (0.2-1.0); Total Protein 7.6 g/dL (6.4-8.2)
[2022-04-05 08:40] LABS: Creatinine, Urine 17 mg/dL (30.0-125.0); Protein, Urine < 5 mg/dL (0.0-11.9)
[2022-04-05 09:04] LABS: Micro Albumin < 5.0 mg/L (0-30.0)
[2022-04-05 10:18] LABS: Free T4 (Free Thyroxine) 1.01 ng/dL (0.89-1.76)
== END | disposition home or self-care (01) ==
LOC: LAB 07:23
PROVIDERS: ATTEND Internal Medicine
DX: E11.9 Type 2 diabetes mellitus without complications (principal); E78.5 Hyperlipidemia, unspecified
CPT/HCPCS: 36415; 80053; 80061; 81001; 82043; 82570; 82607; 83036; 84156; 84439; 84443; 85025; 85652